=== PATIENT | male | born 1940 | race Caucasian/White ===

== ENCOUNTER → 2023-06-05 10:05 | Outpatient (REF) | payer MEDICARE, SELFPAY ==
[2023-06-05 12:19] LABS: ALT (SGPT) 22 U/L (0-50); AST (SGOT) 44 U/L (17-59); Albumin 3.2 g/dl (3.5-5.0); Alkaline Phosphatase 175 U/L (38-126); Blood Urea Nitrogen 30 mg/dl (9-20); Calcium 8.2 mg/dl (8.4-10.2); Carbon Dioxide 27 mmol/L (22-30); Chloride 104 mmol/L (98-107); Glucose 90 mg/dl (70-99); Potassium 4.5 mmol/L (3.5-5.1); Sodium 136 mmol/L (135-145); Total Protein 7.6 g/dl (6.3-8.2); eGFR 55.19
== END ==
LOC: HWLAB 10:05
PROVIDERS: ATTENDING PHYSICIAN Nurse Practitioner Family; REFERRING PHYSICIAN Nurse Practitioner
DX: S06.890A Other specified intracranial injury without loss of consciousness, initial encounter (principal); Z09 Encounter for follow-up examination after completed treatment for conditions other than malignant neoplasm; R79.89 Other specified abnormal findings of blood chemistry; I48.91 Unspecified atrial fibrillation; I50.32 Chronic diastolic (congestive) heart failure
CPT/HCPCS: 36415; 80053

== ENCOUNTER 2023-06-28 10:48 | Outpatient (RCR) | payer MEDICARE, SELFPAY | END 2023-06-28 23:59 | disposition home or self-care (01) | LOC: RPT 10:48 | PROVIDERS: ATTENDING PHYSICIAN Internal Medicine; FAMILY PHYSICIAN Nurse Practitioner Family | DX: I89.0 Lymphedema, not elsewhere classified (principal); R26.2 Difficulty in walking, not elsewhere classified; Z73.6 Limitation of activities due to disability | CPT/HCPCS: 97110; 97140; 97163; 97530; 97763 ==

== ENCOUNTER 2023-07-24 10:34 | Outpatient (RCR) | payer MEDICARE, SELFPAY | END 2023-07-24 23:59 | disposition home or self-care (01) | LOC: RPT 10:34 | PROVIDERS: ATTENDING PHYSICIAN Internal Medicine; FAMILY PHYSICIAN Nurse Practitioner Family | DX: I89.0 Lymphedema, not elsewhere classified (principal); R26.2 Difficulty in walking, not elsewhere classified; M62.81 Muscle weakness (generalized); Z73.6 Limitation of activities due to disability | CPT/HCPCS: 97110; 97112; 97140; 97530; 97763 ==

== ENCOUNTER 2023-08-28 10:34 | Outpatient (RCR) | payer MEDICARE, SELFPAY | END 2023-08-28 12:29 | disposition home or self-care (01) | LOC: RPT 10:34 | PROVIDERS: ATTENDING PHYSICIAN Internal Medicine; FAMILY PHYSICIAN Nurse Practitioner Family | DX: I89.0 Lymphedema, not elsewhere classified (principal); R26.2 Difficulty in walking, not elsewhere classified; M62.81 Muscle weakness (generalized); Z73.6 Limitation of activities due to disability | CPT/HCPCS: 97110; 97140; 97530; 97763 ==

== ENCOUNTER → 2023-09-12 08:00 | Outpatient (REF) | payer MEDICARE, SELFPAY ==
[2023-09-12 11:14] LABS: % Basophils 1.4 % (0-2); % Eosinophils 5.9 % (0-6); % Immature Granulocytes 0.6 % (0-0.5); % Lymphocytes 24.4 % (20.5-51.1); % Monocytes 14.7 % (1.7-9.3); Absolute Basophils 0.1 10^3/uL (0-0.2); Absolute Eosinophils 0.5 10^3/uL (0-0.7); Absolute Immature Granulocytes 0.1 10^3/uL (0-0.05); Absolute Lymphocytes 2.1 10^3/uL (1.2-3.4); Absolute Monocytes 1.3 10^3/uL (0.1-0.6); Absolute Neutrophils 4.5 10^3/uL (1.4-6.5); Hematocrit 44.7 % (39.0-52.0); Hemoglobin 14.8 g/dL (13.0-18.0); Mean Corp Hgb Conc. 33.1 g/dL (33.0-37.0); Mean Corpuscular Hgb 30.2 pg (27.0-31.0); Mean Corpuscular Volume 91.2 fL (80.0-94.0); Mean Platelet Volume 9.9 fL (7.4-10.4); Nucleated Red Blood Cells % 0 % (-); Platelet Count 207 10^3/uL (130-400); Red Cell Dist. Width 16.9 % (11.5-14.5); White Blood Cell Count 8.5 10^3/uL (4.8-10.8)
[2023-09-12 11:28] LABS: ALT (SGPT) 28 U/L (0-50); AST (SGOT) 47 U/L (17-59); Albumin 3.3 g/dl (3.5-5.0); Alkaline Phosphatase 171 U/L (38-126); Blood Urea Nitrogen 26 mg/dl (9-20); Carbon Dioxide 26 mmol/L (22-30); Chloride 102 mmol/L (98-107); Glucose 92 mg/dl (70-99); Phosphorus 4.4 mg/dl (2.5-4.5); Potassium 4.9 mmol/L (3.5-5.1); Sodium 136 mmol/L (135-145); Total Bilirubin 1.2 mg/dl (0.2-1.3); Total Protein 7.6 g/dl (6.3-8.2); eGFR > 60.00
[2023-09-12 11:35] LABS: Urine Protein 14 mg/dl (0-12)
[2023-09-12 11:42] LABS: Free T4 2.24 ng/dl (0.78-2.19); Prolactin 24.4 ng/ml (3.7-17.9); Vitamin D, 25-OH*** 43.5 ng/mL (30-80)
[2023-09-12 11:44] LABS: Free T3 3.36 pg/ml (2.77-5.27)
[2023-09-12 11:55] LABS: TSH 1.71 uIU/ml (0.47-4.68)
[2023-09-12 12:18] LABS: Intact PTH 69.9 pg/ml (13.6-85.8)
[2023-09-13 12:03] LABS: Thyroid Peroxidase Ab (TPO) 65.3 IU/mL (0.0-9.0)
== END ==
LOC: HWLAB 08:00
PROVIDERS: ATTENDING PHYSICIAN Internal Medicine Endocrinology, Diabetes & Metabolism; FAMILY PHYSICIAN Nurse Practitioner Family; REFERRING PHYSICIAN Internal Medicine
DX: N18.30 Chronic kidney disease, stage 3 unspecified (principal); E06.3 Autoimmune thyroiditis; E22.1 Hyperprolactinemia; D50.0 Iron deficiency anemia secondary to blood loss (chronic); N25.81 Secondary hyperparathyroidism of renal origin; I12.9 Hypertensive chronic kidney disease with stage 1 through stage 4 chronic kidney disease, or unspecified chronic kidney disease; E78.5 Hyperlipidemia, unspecified; E03.9 Hypothyroidism, unspecified
CPT/HCPCS: 36415; 80053; 82306; 82570; 83970; 84100; 84146; 84156; 84439; 84443; 84481; 85025; 86376

== ENCOUNTER → 2023-12-25 08:52 | Outpatient (REF) | payer MEDICARE, SELFPAY ==
[2023-12-25 12:26] LABS: HDL Cholesterol 33 mg/dl; LDL Cholesterol, Calculated 68 mg/dl; Total Cholesterol 124 mg/dl (50-199); Triglyceride 117 mg/dl (10-149); Very Low Density Lipoprotein 23 mg/dl (0-30)
== END ==
LOC: HWLAB 08:52
PROVIDERS: ATTENDING PHYSICIAN Nurse Practitioner Family
DX: E78.5 Hyperlipidemia, unspecified (principal); I12.9 Hypertensive chronic kidney disease with stage 1 through stage 4 chronic kidney disease, or unspecified chronic kidney disease
CPT/HCPCS: 36415; 80061

== ENCOUNTER → 2024-05-21 11:11 | Outpatient (REF) | payer MEDICARE, SELFPAY ==
[2024-05-21 15:37] LABS: % Basophils 1.2 % (0-2); % Eosinophils 3.9 % (0-6); % Immature Granulocytes 0.4 % (0-0.5); % Monocytes 13.7 % (1.7-9.3); % Neutrophils 58.8 % (42.2-75.2); Absolute Basophils 0.1 10^3/uL (0-0.2); Absolute Eosinophils 0.3 10^3/uL (0-0.7); Absolute Lymphocytes 1.5 10^3/uL (1.2-3.4); Absolute Neutrophils 4.1 10^3/uL (1.4-6.5); Hematocrit 47.2 % (39.0-52.0); Mean Corp Hgb Conc. 31.8 g/dL (33.0-37.0); Mean Corpuscular Hgb 31.6 pg (27.0-31.0); Mean Corpuscular Volume 99.4 fL (80.0-94.0); Mean Platelet Volume 10.3 fL (7.4-10.4); Nucleated Red Blood Cells % 0 % (-); Platelet Count 149 10^3/uL (130-400); Red Blood Cell Count 4.75 10^6/uL (4.70-6.10); Red Cell Dist. Width 16.3 % (11.5-14.5); White Blood Cell Count 6.9 10^3/uL (4.8-10.8)
[2024-05-21 15:53] LABS: ALT (SGPT) 17 U/L (0-50); AST (SGOT) 34 U/L (17-59); Albumin 3.7 g/dl (3.5-5.0); Alkaline Phosphatase 156 U/L (38-126); Blood Urea Nitrogen 38 mg/dl (9-20); Calcium 8.8 mg/dl (8.4-10.2); Carbon Dioxide 25 mmol/L (22-30); Chloride 98 mmol/L (98-107); Glucose 102 mg/dl (70-99); Sodium 136 mmol/L (135-145); Total Bilirubin 1.8 mg/dl (0.2-1.3); Total Protein 7.9 g/dl (6.3-8.2); eGFR 39.75
[2024-05-21 16:08] LABS: Prolactin 18.7 ng/ml (3.7-17.9)
[2024-05-21 16:22] LABS: TSH 3.05 uIU/ml (0.47-4.68)
[2024-05-24 02:24] LABS: IGF-1 Z Score Calculation -1.1; Insulin-like Growth Factor I 40 ng/mL (16-177)
== END ==
LOC: HWLAB 11:11
PROVIDERS: ATTENDING PHYSICIAN Internal Medicine Endocrinology, Diabetes & Metabolism; FAMILY PHYSICIAN Nurse Practitioner Family
DX: E78.5 Hyperlipidemia, unspecified (principal); I12.9 Hypertensive chronic kidney disease with stage 1 through stage 4 chronic kidney disease, or unspecified chronic kidney disease; N18.31 Chronic kidney disease, stage 3a; I49.3 Ventricular premature depolarization; I35.1 Nonrheumatic aortic (valve) insufficiency; E03.9 Hypothyroidism, unspecified; I10 Essential (primary) hypertension; E06.3 Autoimmune thyroiditis; E22.1 Hyperprolactinemia
CPT/HCPCS: 36415; 80053; 84146; 84305; 84439; 84443; 85025

== ENCOUNTER → 2024-06-21 09:47 | Outpatient (REF) | payer MEDICARE, SELFPAY ==
[2024-06-21 12:13] LABS: ALT (SGPT) 20 U/L (0-50); AST (SGOT) 36 U/L (17-59); Albumin 4.1 g/dl (3.5-5.0); Alkaline Phosphatase 187 U/L (38-126); Blood Urea Nitrogen 52 mg/dl (9-20); Calcium 8.8 mg/dl (8.4-10.2); Carbon Dioxide 25 mmol/L (22-30); Chloride 98 mmol/L (98-107); Glucose 100 mg/dl (70-99); Potassium 4.5 mmol/L (3.5-5.1); Sodium 138 mmol/L (135-145); Total Bilirubin 2.6 mg/dl (0.2-1.3); Total Protein 8.5 g/dl (6.3-8.2); eGFR 32.71
== END ==
LOC: HWLAB 09:47
PROVIDERS: ATTENDING PHYSICIAN Nurse Practitioner Gerontology; FAMILY PHYSICIAN Nurse Practitioner Family
DX: R06.02 Shortness of breath (principal); I50.22 Chronic systolic (congestive) heart failure
CPT/HCPCS: 36415; 71046; 80053

== ENCOUNTER → 2024-07-01 08:25 | Outpatient (REF) | payer MEDICARE, SELFPAY ==
[2024-07-01 13:01] LABS: ALT (SGPT) 18 U/L (0-50); AST (SGOT) 33 U/L (17-59); Albumin 3.2 g/dl (3.5-5.0); Alkaline Phosphatase 144 U/L (38-126); Blood Urea Nitrogen 46 mg/dl (9-20); Calcium 8.8 mg/dl (8.4-10.2); Carbon Dioxide 23 mmol/L (22-30); Chloride 98 mmol/L (98-107); Direct Bilirubin 1.1 mg/dl (0.0-0.4); Glucose 142 mg/dl (70-99); Potassium 4.9 mmol/L (3.5-5.1); Sodium 132 mmol/L (135-145); Total Bilirubin 2.4 mg/dl (0.2-1.3); Total Protein 7.2 g/dl (6.3-8.2); eGFR 39.75
[2024-07-01 18:38] LABS: Hepatitis B Core Ab, IgM Negative (Negative)
[2024-07-01 18:40] LABS: Hepatitis B Surface Antigen Negative (Negative)
[2024-07-01 18:58] LABS: Hepatitis B Core Ab, Total Negative (Negative)
[2024-07-01 19:14] LABS: Hepatitis C Antibody Negative (Negative)
== END ==
LOC: HWRCS 08:25
PROVIDERS: ATTENDING PHYSICIAN Nurse Practitioner Gerontology; FAMILY PHYSICIAN Nurse Practitioner Family
DX: R06.02 Shortness of breath (principal); I50.22 Chronic systolic (congestive) heart failure; I34.0 Nonrheumatic mitral (valve) insufficiency; I35.0 Nonrheumatic aortic (valve) stenosis; I36.1 Nonrheumatic tricuspid (valve) insufficiency; R17 Unspecified jaundice
CPT/HCPCS: 36415; 80053; 82248; 86704; 86705; 86803; 87340; 93306

== ENCOUNTER 2024-07-02 08:09 | Day surgery (SDC) | payer MEDICARE, SELFPAY | END 2024-07-02 10:40 | disposition home or self-care (01) | LOC: CATH 08:09 | PROVIDERS: ATTENDING PHYSICIAN Internal Medicine Cardiovascular Disease; FAMILY PHYSICIAN Nurse Practitioner Family; OTHER PHYSICIAN Internal Medicine | DX: I48.19 Other persistent atrial fibrillation (principal); N18.32 Chronic kidney disease, stage 3b; I50.32 Chronic diastolic (congestive) heart failure; K21.9 Gastro-esophageal reflux disease without esophagitis; Z85.828 Personal history of other malignant neoplasm of skin; Z79.01 Long term (current) use of anticoagulants; Z79.84 Long term (current) use of oral hypoglycemic drugs | CPT/HCPCS: 92960; 93005 ==

== ENCOUNTER → 2024-07-12 09:30 | Outpatient (REF) | payer MEDICARE, SELFPAY | LOC: HWRAD 09:30 | PROVIDERS: ATTENDING PHYSICIAN Nurse Practitioner Family; REFERRING PHYSICIAN Internal Medicine | DX: R17 Unspecified jaundice (principal) | CPT/HCPCS: 76700 ==

== ENCOUNTER → 2024-07-19 11:06 | Outpatient (REF) | payer MEDICARE, SELFPAY | LOC: HWRCS 11:06 | PROVIDERS: ATTENDING PHYSICIAN Internal Medicine; FAMILY PHYSICIAN Nurse Practitioner Family | DX: R06.09 Other forms of dyspnea (principal); I42.9 Cardiomyopathy, unspecified; I44.7 Left bundle-branch block, unspecified; I50.22 Chronic systolic (congestive) heart failure | CPT/HCPCS: 78452; 93017; A9500; J2785 ==

== ENCOUNTER → 2024-10-04 09:40 | Outpatient (REF) | payer MEDICARE, SELFPAY | LOC: RCS 09:40 | PROVIDERS: ATTENDING PHYSICIAN Internal Medicine; FAMILY PHYSICIAN Nurse Practitioner Family | DX: I42.9 Cardiomyopathy, unspecified (principal); I35.1 Nonrheumatic aortic (valve) insufficiency; I34.0 Nonrheumatic mitral (valve) insufficiency; I50.22 Chronic systolic (congestive) heart failure; I36.1 Nonrheumatic tricuspid (valve) insufficiency; I35.0 Nonrheumatic aortic (valve) stenosis | CPT/HCPCS: 93306 ==

== ENCOUNTER 2024-10-27 16:28 | Inpatient (IN) | payer MEDICARE, SELFPAY ==
[2024-10-27] VITALS (7 sets, daily range): BP systolic 93–103; BP diastolic 53–72; BMI 19.6; BMI 20.8; BMI 21.1
--- NOTE | 2024-10-27 12:44 | ED.GENMED ---
History of Present Illness
General
Chief Complaint: Fall
Source: patient and family
Exam Limitations: none
Time Seen by Provider: 10/27/24 11:43
History of Present Illness
History of Present Illness:
85-year-old male who lost his balance falling 3 days ago. Did not hit his head. Scraped both arms. Hit his shoulder. Some low back pain. Daughter has also noted some shortness of breath issues general fatigue and weakness. This is ongoing but
seems to be slowly progressing. Patient with a history of atrial fibrillation. Was a cardioverted relatively recently. Patient denies chest pain acute shortness of breath. Has been on oxygen recently. Breathing is at baseline
Past History
Past History
ED Past Medical History: Arrthythmia (PAF), CHF, HTN, Hypercholesterolemia, Valvular disease and Other
ED Past Surgical History: Other (Hernia repair)
Social History
Tobacco: Non-smoker
Alcohol: None
Drug: None
Personal:
Living: with family
Review of Systems
Review of Systems
All Other Systems: Not applicable
Constitutional: Denies fever
Respiratory: Denies trouble breathing
Cardiac: Denies chest pain, palpitations or syncope
Phy Exam
Physical Exam
Physical Exam:
TRAUMA EXAM:
VITAL SIGNS: Vital signs reviewed, cooperative. Elderly and frail
DISTRESS: No active disease
EYES: Pupils reactive, no orbital trauma
NOSE: No deformity or epistaxis
FACE AND SCALP: Very small scab to the forehead. No ecchymosis hematoma
NECK: Supple nontender
BACK: Back nontender, pelvis stable to compression
RESPIRATORY: No distress, breath sounds normal, no tender chest wall. Oxygen in place
CARDIAC: Mildly irregular
ABDOMEN: Soft nontender bowel sounds normal
SKIN: Large areas of ecchymosis to both forearms with no deep bony tenderness. Abrasions to both forearms. Minimal midline lumbar tenderness.
EXTREMITIES: Nontender. Left shoulder with good range of motion and nontender. Lower extremity edema
NEUROLOGICAL: Alert, oriented, no motor deficits
PSYCH: Mood affect normal
Course
Orders/Labs/Results
Orders:
Orders
10/27/24 Breakfast
Cholesterol Lowering
At Your Request: Full Participation
Cholesterol Lowering: Sodium, 2 Gram
10/27/24 11:57
IV Insert/Care/Rem.- Treatment PRN
Lumbar Spine, 2 or 3 View [CR Lumbar Spine 2 Or 3 Views] Urgent
Comment:
Reason For Exam: Low back pain after fall
10/27/24 11:58
Electrocardiogram (*1) Stat
Reason for Study: Other
Other Reason for Exam: chest pain
CT Head W/o Iv Contrast Urgent
Comment:
Reason For Exam: Fall/anticoagulated
Cardiac Monitoring- Treatment ONCE
Cardiac Monitoring- Treatment ONCE
EKG- Treatment ONCE
Tetanus/Diphth/Acelpertussis [Adacel] 0.5 ml IM .ONCE ONE
CR Chest - 2 Views Urgent
Comment:
Reason For Exam: Short of breath
10/27/24 13:30
Basic Metabolic Panel Urgent
Complete Blood Count/With Diff Urgent
NT-proBNP Urgent
Troponin I Urgent
10/27/24 14:58
0.9% Sodium Chloride 500 ml [Nss] 500 ml IV BOLUS
10/27/24 15:30
Admit/Transfer Patient As Directed
Co-Sign Provider:
Level of Care: Inpatient admission
Assign to:: IVU
Physician / Group: andree
Diagnosis: elevated trop NSTEMI
Reason for Hospitalization: elevated TROP NSTEMI
Expected length of stay greater than two midnights?: Yes
ELOS- Estimated Length of Stay in days: 3
I certify the patient meets the requirements for IP care: Yes
PRN Pain Medication Management As Directed
May give lesser potent ordered pain med per pt: Yes
preference::
Protocol:: Medication orders for pain may be administered in a
manner that supports deferring to patient preference
when the pt is:
- Requesting an ordered lesser potent pain medication.
Least to most potent pain medications are defined
as: acetaminophen < NSAID < tramadol < opioids
(morphine, oxycodone, hydromorphone).
- Requesting a lesser dose of the same medication IF
ORDERED.
- Requesting a less intrusive route of administration
if both routes are prescribed by the provider (PO <
IV).
10/27/24 15:32
Code Status As Directed
Resuscitation Status: Do not resuscitate
Reached after discussion with pt or family/Healthcare POA: Yes
10/27/24 15:33
DNR Bracelet Application ONCE
10/27/24 16:58
Troponin I Urgent
10/27/24 17:56
0.9% Sodium Chloride 1000 ml [Nss] 1,000 ml IV 70 mls/hr
Acetaminophen [Tylenol] 650 mg PO Q4HPRN PRN
Bisacodyl [Dulcolax] 10 mg RECTAL [id number] PRN
Docusate W/Senna [Senokot-S] 1 tablet PO BIDPRN PRN
Polyethylene Glycol Powder [Miralax] 17 grams PO DAILYPRN PRN
10/27/24 17:56
Activity As Directed
Activity Level: As Tolerated
Intake/ Output As Directed
Frequency: Per unit guidelines
Vital Signs As Directed
Frequency: Per unit guidelines
Weight As Directed
Frequency: Daily
O2 Therapy [RESP] Routine
Nasal Cannula Liter Flow: 3 LPM
Titrate/Wean O2 to maintain O2 sat greater than (%): 95
10/27/24 20:00
Apixaban [Eliquis] 2.5 mg PO BID
10/28/24 04:14
Basic Metabolic Panel IN AM
Cardiovascular Evaluation IN AM
10/28/24 06:00
Levothyroxine [Synthroid] 150 mcg PO DAILY@0600
Occupational Therapy Consult [Ot Eval And Treat] IN AM
Physical Therapy Consult [Pt Eval And Treat] IN AM
Activity Level: As Tolerated
10/28/24 08:00
Atorvastatin [Lipitor] 10 mg PO DAILY
Ferrous Sulfate [Feosol] 325 mg PO DAILY
Lansoprazole [Prevacid] 15 mg PO DAILY
10/28/24 18:00
Tamsulosin [Flomax] 0.4 mg PO QPM
Abnormal Lab Results
10/27/24
13:30
RBC 4.41 L 10^6/uL
(4.70-6.10)
MCV 98.6 H fL
(80.0-94.0)
MCH 33.6 H pg
(27.0-31.0)
RDW 15.9 H %
(11.5-14.5)
Abs Immat Gran (auto) 0.1 H 10^3/uL
(0-0.05)
Absolute Lymphs (auto) 0.9 L 10^3/uL
(1.2-3.4)
Absolute Monos (auto) 1.0 H 10^3/uL
(0.1-0.6)
Immature Gran % 0.7 H %
(0-0.5)
Neutrophils % 75.5 H %
(42.2-75.2)
Lymphocytes % 10.7 L %
(20.5-51.1)
Monocytes % 11.7 H %
(1.7-9.3)
Potassium 5.4 H mmol/L
(3.5-5.1)
Carbon Dioxide 21 L mmol/L
(22-30)
BUN 62 H mg/dl
(9-20)
Creatinine 2.0 H mg/dL
(0.7-1.3)
Troponin I 0.054 H* ng/ml
10/27/24 13:30
10/27/24 13:30
Vital Signs
Initial and Last Documented VS:
Initial Vital Signs
Temp Pulse Resp BP Pulse Ox
97.8 F 96 20 93/53 90
10/27/24 11:26 10/27/24 11:26 10/27/24 11:26 10/27/24 11:26 10/27/24 11:26
Last Documented Vital Signs
Temp Pulse Resp BP Pulse Ox
97.3 F 84 18 101/68 3
10/28/24 07:10 10/28/24 07:10 10/28/24 07:10 10/28/24 04:06 10/28/24 07:10
MDM/Problems Addressed
Differential Diagnosis Includes:
Patient here with 2 major issues #1 is evaluation of a fall. He is not describing syncope. He recalls going down. He had no head trauma but based on mechanism and on Eliquis we will CT his head. He has no cervical findings. He has no chest wall
findings or abdominal findings. He has no deep bony tenderness. He has multiple abrasions. Tetanus shot will be given. Is mild lumbar tenderness. Will x-ray of the lumbar area. Second issue is general weakness fatigue some slow increased gait
issues. This has been a gradual ongoing issue. He has a complicated cardiac history. We will check labs EKG. He is in atrial flutter again which may be contributing to some of his symptoms. Clinically not in heart failure.
*Pulse Oximetry
SaO2: 90
Nasal Cannula flow liters per minute: 3
Patient hypoxic: no
*EKG
Interpreted by ED Provider?: Yes
Interpretation: abnormal
Comparison EKG: changes noted
Heart Rate: 74
Rate: normal
Rhythm: atrial flutter and PVC's
[place]: left axis deviation
Interval: normal interval
QRS Pattern: normal QRS
Ischemia: non-specific ST changes
*Critical Care Note
Total Time (30-74mins, 75-104mins- exclusive of procedures): Not Applicable
Data Reviewed
Review of Other/Old Records Reveals: Labs, Records and Testing
Update Note
Update Note:
Patient remained medically stable and nontoxic. From a trauma standpoint no acute issues. Describing some general ongoing weakness that has slightly progressed over time. He is not describing acute ischemic issues. He does have a minimally
elevated troponin that likely is just nonspecific and may be related to his atrial flutter. Atrial flutter is rate controlled. Mild hyperkalemia. Mild hypopension. General weakness. Warrants inpatient management.
ED Attending Note
-
Portions of this chart may have been created with voice recognition software.� Occasional wrong word or��sound alike� substitutions may have occurred due to the inherent limitations of voice recognition software.
Discharge Plan
Departure
Patient Disposition: Admit
Date of Disposition: 10/27/24
Time of Disposition: 14:49
Presentation/result/management discussed w/ accepting MD/DO: Hospitalist
Discharge Problem:
Weakness/frequent falls, Rate controlled atrial flutter, Hyperkalemia, Renal insufficiency/dehydration, Bilateral arm abrasions
Interventions
Interventions:
*Risk Screen - Suicide Last Done: 10/27/24 18:08
*General Assessment Last Done: 10/27/24 15:14
*Neglect/Abuse Screening Last Done: 10/27/24 11:26
*ED- Fall Risk Assessment Last Done: 10/27/24 15:14
*ED COVID-19 Vaccine History Last Done: 10/27/24 15:14
*Nursing Disposition Last Done: 10/27/24 18:04
ED-Musculoskeletal Assessment Last Done: 10/27/24 16:25
ED- Neurological Assessment Last Done: 10/27/24 16:18
ED-Skin Assessment Last Done: 10/27/24 16:23
Discharge Date and Time
Discharge Date/Time: 10/27/24 18:05
[2024-10-27 13:38] LABS: Hematocrit 43.5 % (39.0-52.0); Hemoglobin 14.8 g/dL (13.0-18.0); Mean Corp Hgb Conc. 34.0 g/dL (33.0-37.0); Mean Corpuscular Volume 98.6 fL (80.0-94.0); Nucleated Red Blood Cells % 0 % (-); Platelet Count 139 10^3/uL (130-400); Red Cell Dist. Width 15.9 % (11.5-14.5)
[2024-10-27 14:11] LABS: Blood Urea Nitrogen 62 mg/dl (9-20); Calcium 8.8 mg/dl (8.4-10.2); Carbon Dioxide 21 mmol/L (22-30); Chloride 103 mmol/L (98-107); Estimated Creatinine Clearance 23 ml/min; Glucose 98 mg/dl (70-99); Potassium 5.4 mmol/L (3.5-5.1); Sodium 135 mmol/L (135-145); eGFR 32.71
[2024-10-27 14:25] LABS: Troponin I 0.054 ng/ml
--- NOTE | 2024-10-27 14:58 | HPS.HSE ---
Family Physician
-
Family Physician: NOT KNOW UNKNOWN - PT DOES
Chief Complaint
-
fall
History of Present Illness
85-year-old male with past medical history for PAF, CHF, hypertension, hyperlipidemia, valvular disease who lost his balance falling 3 days ago. Did not hit his head. Scraped both arms. Hit his shoulder. Some low back pain. since then he
progressively got weaker, and fatigue.as per daughter he was cardioverted few months ago. he was doing fine and was not needing his oxygen but recently started using oxygen again. he was evaluated by pulmonology. Patient denies any headache,
dizziness or syncope. Patient denied any fever, chills, cough, congestion. Patient denies any chest pain or short of breath. Patient denies any abdominal pain, nausea, vomiting or diarrhea. Patient denies dysuria hematuria . Denies weight gain
. As per daughter worsening lower extremities edema
Upon arrival he was hypotensive. Patient received normal saline 500 cc, tetanus shot. Admitting for further management
Medical History
Past Medical History
Past Medical History: Reports Other
Additional Past Medical History:
Dyslipidemia
Aortic valve insufficiency
Left bundle julian block
Systolic heart failure
Chronic blood loss anemia
Lymphedema
First-degree AV block
Hypertension
Stage IIIb CKD
Cardiomyopathy
PVCs
Hypothyroidism
Paroxysmal A-fib
Past Surgical History: Reports Other
Additional Past Surgical History:
Bilateral cataract extraction
Hernia surgery
Social History
Tobacco: Non-smoker
Alcohol: None
Drug: None
Personal: Single
Living: Alone
Family History
Family History: Not pertinent
Allergies / Home Medications
Allergies reflects when Allergies were last updated in [facility].
Home Medications with original date entered in [facility]
Allergy/Medication List:
Allergies
Allergy/AdvReac Type Severity Reaction Status Date / Time
No Known Allergies Allergy Verified 10/27/24 11:26
Home Medications
atorvastatin 10 mg tablet 10 mg PO DAILY High cholesterol 07/25/22
levothyroxine 150 mcg tablet 150 mcg PO DAILY Thyroid 07/25/22
silodosin 8 mg capsule 8 mg PO QPM Urinary issue 07/25/22
carvedilol 6.25 mg tablet 6.25 mg PO BID Blood Pressure 10/02/22
lansoprazole 15 mg delayed release,disintegrating tablet 15 mg PO DAILY GERD 10/02/22
apixaban 5 mg tablet (Eliquis) 5 mg PO BID Blood Clot Prevention/Tx 04/25/23
cholecalciferol (vitamin D3) 50 mcg (2,000 unit) tablet (Vitamin D3) 100 mcg PO DAILY Supplement ##0 04/25/23
ferrous sulfate 325 mg (65 mg iron) tablet,delayed release 325 mg PO DAILY Supplement 04/25/23
dapagliflozin propanediol 10 mg tablet (Farxiga) 10 mg PO DAILY Heart disease/condition 30 days #30 tabs 05/01/23
spironolactone 25 mg tablet 25 mg PO DAILY Fluid retention/Swelling 30 days #30 tabs 05/01/23
furosemide 40 mg tablet 40 mg PO DAILY Fluid retention/Swelling #30 tabs 05/02/23
acetaminophen 325 mg tablet (Tylenol) 650 mg PO Q6HPRN PRN MILD PAIN 10/27/24
Review of Systems
-
Constitutional: Reports Fatigue
EENT: Reports No Symptoms
Respiratory: Reports No Symptoms
Cardiac: Reports No Symptoms
Abdomen/GI: Reports No Symptoms
: Reports No Symptoms
Musculoskeletal: Reports No Symptoms
Skin: Reports No Symptoms
Neurological: Reports Weakness
Endocrine: Reports No Symptoms
Hematologic/Lymphatic: Reports No Symptoms
Psych: Reports No Symptoms
Physical Exam
Vital Signs
Vital Signs
Temp Pulse Resp BP Pulse Ox
97.8 F 75 25 93/53 92
10/27/24 11:26 10/27/24 13:45 10/27/24 13:45 10/27/24 11:26 10/27/24 13:45
Physical Exam
General: Well Developed, Well Nourished and No Apparent Distress
HEENT: NormoCephalic, Moist mucous membranes and Atraumatic
Respiratory: Clear
Cardiac: S1/S2 and Regular Rhythm; No Murmur or Rub
GI: Soft, Non Tender, Non Distended and Normal Bowel Sounds; No Organomegaly
Rectal: Deferred by Provider
Musculoskeletal: No Clubbing, No Cyanosis and No Edema
Skin: Other (Scab to forehead,Large areas of ecchymosis to both forearms with no deep bony tenderness. Abrasions to both forearms. )
Neuro: Nonfocal/grossly intact
Laboratory Results
-
10/27/24 13:30
10/27/24 13:30
Laboratory Results
Lactic Acid Cancelled 10/27/24 18:00
Troponin I 0.054 ng/ml H* 10/27/24 13:30
Data Reviewed
-
Diagnostic Radiology: Report Reviewed by me
CT Scan: Report Reviewed by me
Lab Data: Labs Reviewed by me
Impression/Plan
-
# Generalized weakness/fall likely mechanical
#mild acute compression deformity of L1
- PT/OT consulted
- Head CT with No acute intracranial abnormality. Specifically, no acute intracranial hemorrhage or extra-axial collection. Atrophy and chronic microvascular white matter ischemic change. No skull fracture. Partial visualization of the paranasal
sinuses, with the presence of inflammatory changes at different stages, as described, raising possibility of acute sphenoid sinusitis in the proper clinical setting.
- Chest x-ray with Stable chronic findings, as described. No acute cardiopulmonary process.
- Lumbar spine x-ray with mild acute compression deformity of L1
-Tylenol prn for back pain
# Hyperkalemia/acute kidney injury on CKD stage IIIb concern for dehydration
- Creatinine 2.0, potassium 5.4
- Patient was in normal saline in the ER
- BMP in a.m.
-fluids continued
#hypotension likely from hypovolemic
-fluids continued
-hold coreg
# Elevated Trop likely NSTEMI
- Troponin 0.054
- Continue to trend troponin
- EKG with a flutter with variable AV block with PVCs or aberrantly conducted complexes. Left anterior fascicle block. Nonspecific T wave abnormality
#Chronic diastolic heart failure exacerbation
# Chronic hypoxic respiratory insufficiency
#nonischemic cardiomyopathy
#moderate AR
-Patient uses 3 L of oxygen baseline, continue supplemental oxygen
- Strict PHANI, daily weight
- Hold Farxiga
-hold Lasix and spironolactone
# Hyperlipidemia
- Atorvastatin continued
#paroxysmal atrial fibrillation.
-Continue Eliquis
- Coreg held due to hypotension
# Iron deficiency anemia
- Ferrous sulfate continued
# GERD
- Lansoprazole continue
#BPH
-silodosin continued
#hypothyroidism
- Levothyroxine
DVT ppx -Eliquis
DNR
[2024-10-27] MEDS: NSS 500 IV (16:00)
--- NOTE | 2024-10-27 17:27 | W.PN.UPDATE ---
Update Note
Progress Note Update
This is an addendum to H&P written by Robyn Huang on 10/27/2024. �Patient seen and examined independently with [employer].
84-year-old male past medical history of HFpEF on 3 L baseline, nonischemic cardiomyopathy, moderate aortic regurgitation, paroxysmal atrial fibrillation on Eliquis, contraction alkalosis, CKD 3B, chronic anemia, BPH, hypothyroidism, presenting for
fatigue, weakness, worsening lower extremity edema and shortness of breath. �Ongoing weight loss. �Cardioverted in June but found to be in atrial fibrillation since then. �No changes to medication doses recently.
He had a fall 3 days ago landing on his butt with some left wrist pain and lower back pain.
Labs show creatinine of 2 from baseline of 1.7, potassium 5.4. �Troponin 0.054.
CT head shows no acute intracranial abnormality. �Chest x-ray unremarkable. �Lumbar spine x-ray shows acute L1 compression deformity.
Presentation consistent with hypovolemia secondary to decreased p.o. intake and Lasix/spironolactone/dapagliflozin/Coreg. �Slight ZULMA. �Nonischemic myocardial injury from hypovolemia. �Trend troponins. �Cardiac BNP pending. �Gentle IV fluids. �Hold
Lasix/spironolactone/dapagliflozin/Coreg.
Tylenol for L1 compression fracture.
[2024-10-27 17:34] LABS: Troponin I 0.040 ng/ml
[2024-10-27] MEDS: ADACEL 0.5 ML IM (17:34)
--- NOTE | 2024-10-27 18:28 | PTCARENOTE ---
Rec'd pt from ED. Pt ambulatory from stretcher to bed w/ assist x1 and RW. Pt is AOX3. Tele- aflutter. HR 80-90s. Pt sating 98% on 3L O2 NC. Pt baseline is 3L O2 NC at home. Oriented pt to room. Reviewed plan of care w/ pt and verbalizes
understanding. Currently OOB in chair eating dinner; call colby w/in reach.
[2024-10-27] MEDS: NSS 1000 IV (18:29)
[2024-10-27] MEDS: TYLENOL 650 MG PO (18:56)
[2024-10-27] MEDS: ELIQUIS 2.5 MG PO (19:28)
--- NOTE | 2024-10-27 23:33 | PTCARENOTE ---
Pt. sitting OOB in chair all evening, VSS, A-fib with frequent PVC's on the monitor. No complaints pain discomfort at this time, states Tylenol given on previous shift effective for lower back pain. IVF's infusing as per order, pt. using urinal
with assist x 1 & RW to stand. Pt. completely oriented and very pleasant. Whishes to stay in chair at this time.
[2024-10-28] VITALS (18 sets, daily range): BP systolic 87–115; BP diastolic 56–76; PULSE 86–100; O2SAT 95; BMI 21.1
[2024-10-28] MEDS: FLOMAX 0.4 MG PO ×2 (00:27→17:16)
--- NOTE | 2024-10-28 05:01 | PTCARENOTE ---
Pt. urinating small amounts of jesse urine frequently this shift, 100-200 ml at a time. Having some difficulty, no burning or pain. Hospitalist JANAY Bowen notified, also that 1800 Flomax dose last night was missed (pt. new admit, med not started
until 10/28 on JUN). One time dose ordered and given at 0027 with some improvement in flow. Pt. bladder scanned post void this morning with results of 183 ml.
[2024-10-28 05:02] LABS: Blood Urea Nitrogen 57 mg/dl (9-20); Calcium 8.0 mg/dl (8.4-10.2); Carbon Dioxide 20 mmol/L (22-30); Chloride 107 mmol/L (98-107); Estimated Creatinine Clearance 27 ml/min; Glucose 83 mg/dl (70-99); HDL Cholesterol 28 mg/dl; LDL Cholesterol, Calculated 48 mg/dl; Potassium 4.4 mmol/L (3.5-5.1); Sodium 135 mmol/L (135-145); Very Low Density Lipoprotein 19 mg/dl (0-30); eGFR 37.12
[2024-10-28] MEDS: SYNTHROID 150 MCG PO (05:38)
[2024-10-28] MEDS: ELIQUIS 2.5 MG PO ×2 (07:45→20:10)
[2024-10-28] MEDS: FEOSOL 325 MG PO (07:45)
[2024-10-28] MEDS: PREVACID 15 MG PO (07:45)
[2024-10-28] MEDS: LIPITOR 10 MG PO (07:45)
[2024-10-28] MEDS: NSS 1000 IV (07:46)
[2024-10-28] MEDS: TYLENOL 650 MG PO ×2 (07:55→23:02)
--- NOTE | 2024-10-28 09:54 | CON.CAR ---
Addendum entered and electronically signed by Gabe Welsh MD 10/28/24 10:39:
84 yo male with PMH of paroxysmal A fib, on eliquis, CKD3b, chronic HFPEF is admitted with weakness, falls, ZULMA. He denies chest pain. Edema is stable. Exam with irregular rhythm, II/ systolic murmur at RUSB, 1+ RLE, trace LLE edema. Cr 1.8. Tele
and EKG show rate controlled atrial flutter.
Atrial flutter, typical, new. He was cardioverted in June from A fib, and felt better in sinus. Discussed with EP. Will start tikosyn 125mcg q12. High risk med with close monitoring of tele and EKG. Continue eliquis 2.5mg bid.
With low BP, will change coreg to Toprol XL.
Chronic HFPEF. BP low, ZULMA. Hold lasix, farxiga, aldactone. K was elevated on admission, so will stop aldactone going forward.
Recent echo and stress reviewed below.
Original Note:
Consultation
Consultation Request
Date/Time Consultation Requested: 10/28/2024 0900
Date/Time Consultation Performed: 10/28/2024 0930
Requesting Provider: DR. Walsh
Performing Provider: Dr. Welsh
Reason for Consultation: AF, chronic chronic systolic HF mid range
Medical History
-
Chief Complaint: weakness, SOB
History of Present Illness:
84 y/o pt with PAF(CHADSVASC 4) last DCCV 07/02/24, LBBB, NICM , chronic HFmrEF now 54 %, mils , mild/mod MR, mod AR, mild-mod TR, PVC's, mildly dilated ascending aorta, CKD3b, pre-DM, HTN, lymphedema and h/o of recurrent GI bleeds who presents
to ER after increased weakness and SOB. He also had a trip and fall last week. He notes he had had poor appetite and po intake . He denies CP, palpitations. He feels more LIMON with activity and is on chronic O2. On admit noted to be back in atrial
flutter.
Past Medical History
Past Medical History: Other (HTN, hyperlipidemia, LBBB, NICM EF 54%, mild , mild-mod MR, mild AR, mild-mod TR, PVC's. BPH, CKD3, CKDb3,GI bleed, anemia,lymphedema, hypythyroidism,, PAF,)
Past Surgical History: Other (Hernia surgery, bilateral cataract surgery,)
Social History
Tobacco: Non-Smoker
Alcohol: None
Living: Alone
Family History
Family History: Reviewed & Not Pertinent
Allergies / Home Medications
Allergy/AdvReac Type Severity Reaction Status Date / Time
No Known Allergies Allergy Verified 10/27/24 11:26
�Medication �Instructions �Recorded �Confirmed �Type
atorvastatin 10 mg tablet 10 mg PO DAILY High cholesterol 07/25/22 10/27/24 History
levothyroxine 150 mcg tablet 150 mcg PO DAILY Thyroid 07/25/22 10/27/24 History
silodosin 8 mg capsule 8 mg PO QPM Urinary issue 07/25/22 10/27/24 History
carvedilol 6.25 mg tablet 6.25 mg PO BID Blood Pressure 10/02/22 10/27/24 History
lansoprazole 15 mg delayed 15 mg PO DAILY GERD 10/02/22 10/27/24 History
release,disintegrating tablet
apixaban 5 mg tablet (Eliquis) 2.5 mg PO BID Blood Clot 04/25/23 10/27/24 History
Prevention/Tx
cholecalciferol (vitamin D3) 50 100 mcg PO DAILY Supplement ##0 04/25/23 10/27/24 History
mcg (2,000 unit) tablet (Vitamin
D3)
ferrous sulfate 325 mg (65 mg 325 mg PO DAILY Supplement 04/25/23 10/27/24 History
iron) tablet,delayed release
dapagliflozin propanediol 10 mg 10 mg PO DAILY Heart 05/01/23 10/27/24 Rx
tablet (Farxiga) disease/condition 30 days #30 tabs
spironolactone 25 mg tablet 25 mg PO DAILY Fluid 05/01/23 10/27/24 Rx
retention/Swelling 30 days #30 tabs
furosemide 40 mg tablet 40 mg PO DAILY Fluid 05/02/23 10/27/24 Rx
retention/Swelling #30 tabs
acetaminophen 325 mg tablet 650 mg PO Q6HPRN PRN MILD PAIN 10/27/24 10/27/24 History
(Tylenol)
Review of Systems
-
History Source: Patient
Constitutional: Weight Loss and Fatigue
EENT: No Symptoms
Respiratory: Trouble Breathing
Cardiac: No Symptoms
Abdomen/GI: No Symptoms
: No Symptoms
Musculoskeletal: Other (Generalized weakness)
Skin: No Symptoms
Neurological: No Symptoms
Physical Exam
Vital Signs
Temp Pulse Resp BP Pulse Ox
97.3 F 92 18 96/60 94
10/28/24 07:10 10/28/24 08:00 10/28/24 07:10 10/28/24 07:55 10/28/24 08:14
Lab Results
10/27/24 13:30
10/28/24 04:14
Troponin I Cancelled 10/27/24 22:30
Klq-Q-Daiweyhktao Pept 05992 pg/ml 10/27/24 13:30
Physical Exam
General: Well Developed and No Apparent Distress
HEENT: Normocephalic and Moist Mucous Membranes
Respiratory: Crackles (Right base, left clear)
Cardiac: S1/S2, Irregular Rhythm and Peripheral Edema (Mild bilateral lower extremity edema right greater than left)
Breast: Deferred by me
GI: Soft, Non Tender and Normal Bowel Sounds
Rectal: Deferred by Provider
Musculoskeletal: Edema (Mild bilateral lower extremity edema right greater than left)
Skin: Warm and Dry
Neuro: AO x 3
Impression / Plan
-
PAF, atrial flutter:
- Patient with recurrent atrial arrhythmias. Atrial flutter is typical flutter. Initial plan will be to initiate Tikosyn.
- Tikosyn initiation will require intense inpatient monitoring. EKG and telemetry will be monitored as well as renal function.
- If patient does not convert to normal sinus rhythm with Tikosyn then we will proceed with electrical cardioversion.
- Patient confirms he has not missed any doses of Eliquis in the last month. He is on the lower dose Eliquis secondary to age and renal function.
- Will also plan for EP consultation for atrial flutter ablation as an outpatient.
- Past EKG from 07/02/2024 prior EKG from 07/02/2024 in normal sinus rhythm had a QTc of 450 ms.
- Prior amiodarone with elevated LFTs which normalized off medication.
Chronic HFpEF:
- Patient with recent weakness. In chart review it does appear that he has had weight loss as well.
- He was given IV fluids in the emergency room which were continued.
- Creatinine is improving. Hold on further IV fluids. BNP 23,000 this admit in setting CKD/ZULMA.
- Continue to hold diuretics at this time.
-Continue to reassess renal function and timing of restarting diuretics. Patient may only need as needed Lasix moving forward will reassess.
-Echo 10/04/24 EF 54, mild mod MR, AR, TR
-Lexiscan stress test 07/18/2024 negative for ischemia
- Will change Coreg to low-dose metoprolol to allow for improved blood pressures.
ZULMA/CKD3b:
-con't monitor renal function with holding diuresis
LBBB:
Chronic stable
Chronic lymphedema:
- Previous lymphedema therapy, compression as tolerated
Data Reviewed
-
EKG: Tracing Personally Visualized and interpreted (Atrial flutter 74 bpm, LAFB, PVC)
Radiology: Report Reviewed by me (Chest x-ray 10/27/2024 no acute process)
MRI: Other (Lexiscan stress test 07/19/2024 EKG negative for ischemia no notable ischemia on imaging EF 54%)
Medical Tests (Nuc Med, Echo etc): Report Reviewed by me (Echocardiogram 10/04/2024 EF 54%, severe biatrial enlargement, mild to moderate mitral, aortic and tricuspid regurgitation, normal PASP)
Labs: Labs Reviewed by me and Discussed with Physician
Old Records: Reviewed (Reviewed outpatient charts which include last outpatient cardiology office visit from July 11, 2024 summarized as above)
[2024-10-28] MEDS: TIKOSYN 125 MCG PO ×2 (10:59→22:48)
--- NOTE | 2024-10-28 12:03 | W.CARD.TIKOS ---
Initiate Tikosyn
-
I verify that the patient has not taken any verapamil (Isoptin/Calan), ketoconazole (Nizoral), cimetidine (Tagamet), trimethoprim (Trimpex), trimethoprim/sulfamethoxazole (Bactrim), megesterol (Megace), prochlorperazine (Compazine),
hydrochlorothiazide (HCTZ), dolutegravir (Tivicay) or any Class I or Class III anti-arrhythmic within the last three days
AND
I verify that the patient has not taken amiodarone within the last THREE months, or that the patient's amiodarone plasma concentration is <0.3 mcg/mL.
Creatinine 1.8 mg/dL (0.7-1.3) H 10/28/24 04:14
Estimated Creat Clear 27 ml/min 10/28/24 04:14
Does patient have a Ventricular Conduction Abnormality: Yes
I have assessed the baseline QTc interval (using QT for heart rate less than 60 bpm) and deemed the patient is appropriate for Dofetilide therapy. I understand that Tikosyn is contraindicated if the QTc is >440msec (500msec in patients with
ventricular conduction abnormalities).
Baseline QTc (in msec): 479
QTc interval is greater than 440msec without conduction abnormality OR greater than 500msec with a conduction abnormality, but acceptable to proceed per Cardiology attending.
Reason for Administration with Prolonged QTc: Bundle Branch Block (IVCD, LBBB history)
Ordering Physician: Gabe Welsh
--- NOTE | 2024-10-28 13:36 | PTCARENOTE ---
Dose #1 of PO tikosyn 125mcg dose administered. Post EKG obtained per protocol. QTc 484. Tele remains aflutter. Plan of care reviewed w/ pt and verbalizes understanding. Currently OOB in chair; call earnestine w/in reach.
[2024-10-28 14:06] LABS: Urine Character Clear (Clear)
[2024-10-28 14:13] LABS: Urine Squamous Cell 0-2 /LPF (Few); Urine White Cell 0-2 /HPF (0-5)
--- NOTE | 2024-10-28 14:50 | W.PN.HOSP.TC ---
Today's Communication/Plan
-
Holding Diuretics, monitoring BMP
Tikosyn loading
Nutrition consult
Assessment / Plan
Assessment / Plan
Physical Exam
General: Well Developed and No Apparent Distress
HEENT: Normocephalic and Moist Mucous Membranes
Respiratory: Crackles (Right base, left clear)
Cardiac: S1/S2, Irregular Rhythm
Breast: Deferred by me
GI: Soft, Non Tender and Normal Bowel Sounds
Rectal: Deferred by Provider
Musculoskeletal: Edema (Mild bilateral lower extremity edema right greater than left) - chronic
Skin: Warm and Dry
Neuro: AO x 3
# Generalized weakness/fall likely mechanical
#mild acute compression deformity of L1
-Possibly related to PAF/AFlutter +/- hypovolemia/dehydration + ZULMA
- Treat as below
- PT/OT consulted
-Holding diuretics
- Head CT with no obvious acute abnormality
- Chest x-ray with Stable chronic findings, as described. No acute cardiopulmonary process.
- Lumbar spine x-ray with mild acute compression deformity of L1
-Tylenol prn for back pain
-UA neg
�Nutrition consult
#ZULMA on CKD3b
#Hyperkalemia
-Holding diuretics
-Monitor for re-initiation
-F/u BMP
#Chronic Hypotension
-orthostatic negative
-holding lasix
- Change Coreg to low-dose metoprolol
-monitor
#PAF, atrial flutter:
- Patient with recurrent atrial arrhythmias.
-Tikosyn initiation
-Eliquis He is on the lower dose Eliquis secondary to age and renal function.
- EP consultation for atrial flutter ablation as an outpatient.
- Prior amiodarone with elevated LFTs which normalized off medication.
#Chronic HFpEF:
-hold diuretics - not in overload
-Gentle fluid if needed
-Creatinine is improving.
-Elev BNP - exacerbated by ZULMA
-Echo 10/04/24 EF 54, mild mod MR, AR, TR - no need for repeat at this time
-Lexiscan stress test 07/18/2024 negative for ischemia
- Will change Coreg to low-dose metoprolol
#Chronic lymphedema:
- Previous lymphedema therapy, compression as tolerated
# Elevated Trop
-trops flat
unlikely NSTEMI
-no chest pain
-Recent Stress test negative for ischemia
-Cards following
# Chronic hypoxic respiratory insufficiency -Patient uses 3 L of oxygen baseline, continue supplemental oxygen
#moderate AR
# Hyperlipidemia - Atorvastatin continued
# Iron deficiency anemia- Ferrous sulfate continued
# GERD- Lansoprazole continue
#BPH - meds continued
#hypothyroidism - Levothyroxine
DVT ppx -Eliquis
Total time spent on today's encounter was 50 minutes which included time spent in counseling the patient/family regarding diagnosis and treatment plan as listed above, goals of care, and symptom management. Case was discussed with nursing staff,
specialists, and care coordinators/case management. All labs and imaging personally reviewed by me. Remainder the time spent in detailed review of previous records, lab data, imaging, and other medical provider documentation.
Anticipated Discharge: > 48 hours
Subjective/Interval History
-
Date of Service: October 28, 2024
No acute events, sitting in chair comfortably
Objective Data
-
Labs:
Laboratory Results
10/28/24
04:14
Sodium 135
Potassium 4.4
Chloride 107
Carbon Dioxide 20 L
BUN 57 H
Creatinine 1.8 H
Glucose 83
Calcium 8.0 L
Vital Signs:
Vital Signs
Temp Pulse Resp BP Pulse Ox
97.2 F 79 16 115/76 99
10/28/24 11:13 10/28/24 14:00 10/28/24 11:13 10/28/24 12:46 10/28/24 11:13
I&O
10/27/24 10/28/24 10/29/24
06:59 06:59 06:59
Intake Total 820 / 820 410 / 410
Output Total 500 / 500
Balance 320 / 320 410 / 410
Review of Systems
-
History Source: Patient
All other systems: Not reviewed unless documented
Data Reviewed
-
Total Time Spent with Patient (in minutes): 43
Labs: Labs Reviewed by me
--- NOTE | 2024-10-28 17:15 | CM ---
spoke to pt in room, he is prev indep, lives alone in a 2 story home. he has a son and a daughter close by and very supportive. he uses a rollator when needed and has home o2. plan is for tikosyn loading and dc to home rodriguez medically stable. cm
following for any dc planning needs as they arise.
[2024-10-28] MEDS: TOPROL XL 12.5 MG PO (21:40)
--- NOTE | 2024-10-28 23:35 | PTCARENOTE ---
Rec'd pt at change of shift. Pt AAO*3, VSS, and Afib on TELE monitor. pt reported lower back pain, Tylenol given as ordered. Pt maintained on high fall risk and bed alarm active. Pt resting with call colby in reach and plan of care ongoing. See
MAR and flowchart for full pt care and assessment. 2nd dose of Tikosyn rec'd.
[2024-10-29] VITALS (8 sets, daily range): BP systolic 100–125; BP diastolic 55–70; BMI 20.9
[2024-10-29 04:16] LABS: Hematocrit 39.7 % (39.0-52.0); Hemoglobin 13.5 g/dL (13.0-18.0); Mean Corp Hgb Conc. 34.0 g/dL (33.0-37.0); Mean Corpuscular Volume 99.3 fL (80.0-94.0); Platelet Count 134 10^3/uL (130-400); Red Cell Dist. Width 16.0 % (11.5-14.5)
[2024-10-29 04:40] LABS: ALT (SGPT) 15 U/L (0-50); AST (SGOT) 27 U/L (17-59); Albumin 3.0 g/dl (3.5-5.0); Alkaline Phosphatase 152 U/L (38-126); Blood Urea Nitrogen 49 mg/dl (9-20); Calcium 8.1 mg/dl (8.4-10.2); Carbon Dioxide 20 mmol/L (22-30); Chloride 110 mmol/L (98-107); Estimated Creatinine Clearance 35 ml/min; Glucose 88 mg/dl (70-99); Potassium 4.3 mmol/L (3.5-5.1); Sodium 137 mmol/L (135-145); Total Protein 6.5 g/dl (6.3-8.2); eGFR 50.18
[2024-10-29] MEDS: SYNTHROID 150 MCG PO (06:23)
[2024-10-29] MEDS: TYLENOL 650 MG PO (06:24)
[2024-10-29] MEDS: LIPITOR 10 MG PO (07:54)
[2024-10-29] MEDS: PROTONIX 20 MG PO (07:54)
[2024-10-29] MEDS: ELIQUIS 2.5 MG PO ×2 (07:54→08:47)
[2024-10-29] MEDS: FEOSOL 325 MG PO (07:54)
--- NOTE | 2024-10-29 08:37 | W.PN.CD ---
Today's Communication / Plan
-
tikosyn 125mcg q12
-If patient does not convert to normal sinus rhythm with Tikosyn then we will proceed with electrical cardioversion tomorrow
stop aldactone due to hyperkalemia on admission
resume farxiga
lasix prn
BP low on coreg: now on Toprol XL 12.5mg qHS
Impression / Plan
-
PAF, typical atrial flutter:
- Patient with recurrent atrial arrhythmias. Atrial flutter is typical flutter. Discussed with EP. Plan will be to initiate Tikosyn.
- Tikosyn initiation (high risk med) will require intense inpatient monitoring. EKG and telemetry will be monitored as well as renal function. He has underlying IVCD. Baseline QTc in sinus 479 msec.
-tikosyn 125mcg q12
- If patient does not convert to normal sinus rhythm with Tikosyn then we will proceed with electrical cardioversion tomorrow
- Patient confirms he has not missed any doses of Eliquis in the last month.
- Prior amiodarone toxicity with elevated LFTs which normalized off medication.
-BP low on coreg: now on Toprol XL 12.5mg qHS
Anticoagulation
-Cr 1.4 today, so eliquis increased to 5mg bid
-if Cr remains variable, will likely change to xarelto 15mg daily
Chronic HFpEF:
-Echo 10/04/24 EF 54, mild mod MR, AR, TR
-Lexiscan stress test 07/18/2024 negative for ischemia
-Patient with recent weakness. In chart review it does appear that he has had weight loss as well.
- stop aldactone due to hyperkalemia on admission
-resume farxiga
-lasix prn
ZULMA/CKD3b: improving
-con't monitor renal function with holding lasix/adactone
iLBBB:
Chronic stable
Chronic lymphedema:
- Previous lymphedema therapy, compression as tolerated
Physical Exam
Vital Signs/Labs
Vital Signs
Temp Pulse Resp BP Pulse Ox
97.4 F 87 18 101/70 98
10/29/24 07:32 10/29/24 08:00 10/29/24 07:32 10/29/24 07:32 10/29/24 08:02
10/28/24 10/29/24 10/30/24
06:59 06:59 06:59
Actual Weight 61 kg 60.6 kg
10/29/24 03:47
10/29/24 03:47
Triglycerides 95 mg/dl (10-149) 10/28/24 04:14
LDL Cholesterol, Calc 48 mg/dl 10/28/24 04:14
VLDL Cholesterol, Calc 19 mg/dl (0-30) 10/28/24 04:14
HDL Cholesterol 28 mg/dl 10/28/24 04:14
10/27/24
13:30
Imd-N-Ukptyjlmgsu Pept 48760
LAB Results
10/27/24 10/27/24 10/27/24
13:30 16:58 22:30
Troponin I 0.054 H* 0.040 H* D Cancelled
Physical Exam
Constitutional: No acute distress and Comfortable
EENT: Moist mucous membranes
Cardiovascular: Rhythm/rate is irregular, Pedal edema present, JVD present, Systolic murmur present and Diastolic murmur present
Respiratory: Respiratory effort normal and Lungs clear to auscul.
Neuro/Psych: Alert and Oriented
Data Reviewed
-
Date of Service: October 29, 2024
EKG: Other (Tele: A fl 80s, PVC's)
Labs: Labs Reviewed by me
[2024-10-29] MEDS: FARXIGA 10 MG PO (08:47)
[2024-10-29] MEDS: TIKOSYN 125 MCG PO ×2 (10:54→23:05)
--- NOTE | 2024-10-29 15:10 | W.PN.HOSP.TC ---
Today's Communication/Plan
-
tikosyn
may need cardioversion tomorrow
resume farxiga
Toprol
may need ct imaging of the abd/pelvis outpt with contrast if renal function stablized
Assessment / Plan
Assessment / Plan
Physical Exam
General: Well Developed and No Apparent Distress
HEENT: Normocephalic and Moist Mucous Membranes
Respiratory: Crackles (Right base, left clear)
Cardiac: S1/S2, Irregular Rhythm
Breast: Deferred by me
GI: Soft, Non Tender and Normal Bowel Sounds
Rectal: Deferred by Provider
Musculoskeletal: Edema (Mild bilateral lower extremity edema right greater than left) - chronic
Skin: Warm and Dry
Neuro: AO x 3
# Generalized weakness/fall likely mechanical
#mild acute compression deformity of L1
-Possibly related to PAF/AFlutter +/- hypovolemia/dehydration + ZULMA
- Treat as below
- PT/OT consulted
-Holding diuretics
- Head CT with no obvious acute abnormality
- Chest x-ray with Stable chronic findings, as described. No acute cardiopulmonary process.
- Lumbar spine x-ray with mild acute compression deformity of L1
-Tylenol prn for back pain
-UA neg
�Nutrition consult
#ZULMA on CKD3b
#Hyperkalemia
-improving
-Holding diuretics
-Monitor for re-initiation
-F/u BMP
#Chronic Hypotension
-orthostatic negative
-holding lasix
- Change Coreg to low-dose metoprolol
-monitor
#PAF, atrial flutter:
- Patient with recurrent atrial arrhythmias.
-Tikosyn initiation - if not reverting to sinus - plan for cardioversion tomorrow
-He is on the lower dose Eliquis secondary to age and renal function.
- EP consultation for atrial flutter ablation as an outpatient.
- Prior amiodarone with elevated LFTs which normalized off medication.
- Toprol
#Chronic HFpEF:
-hold diuretics - not in overload
-resume farxiga
-No more Aldactone with ZULMA and Elevated K on admission
-Gentle fluid if needed
-Creatinine is improving.
-Elev BNP - exacerbated by ZULMA
-Echo 10/04/24 EF 54, mild mod MR, AR, TR - no need for repeat at this time
-Lexiscan stress test 07/18/2024 negative for ischemia
- Will change Coreg to low-dose metoprolol
#Chronic lymphedema:
- Previous lymphedema therapy, compression as tolerated
# Elevated Trop
-trops flat
unlikely NSTEMI
-no chest pain
-Recent Stress test negative for ischemia
-Cards following
#Transaminitis - worked up in the past - Neg murphys sign; no biliary ductal dilation that was sig; Consider CT enhanced CT abd to evaluate pancrease and Ascites - may need to be done outpt due to recent ZULMA
# Chronic hypoxic respiratory insufficiency -Patient uses 3 L of oxygen baseline, continue supplemental oxygen
#moderate AR
# Hyperlipidemia - Atorvastatin continued
# Iron deficiency anemia- Ferrous sulfate continued
# GERD- Lansoprazole continue
#BPH - meds continued
#hypothyroidism - Levothyroxine
DVT ppx -Eliquis
Total time spent on today's encounter was 52 minutes which included time spent in counseling the patient/family regarding diagnosis and treatment plan as listed above, goals of care, and symptom management. Case was discussed with nursing staff,
specialists, and care coordinators/case management. All labs and imaging personally reviewed by me. Remainder the time spent in detailed review of previous records, lab data, imaging, and other medical provider documentation.
Anticipated Discharge: 24 - 48 hours
Subjective/Interval History
-
Date of Service: October 29, 2024
tikosyn loading
Objective Data
-
Labs:
Laboratory Results
10/29/24
03:47
WBC 7.2
Hgb 13.5
Hct 39.7
Plt Count 134
Sodium 137
Potassium 4.3
Chloride 110 H
Carbon Dioxide 20 L
BUN 49 H
Creatinine 1.4 H
Glucose 88
Calcium 8.1 L
Total Bilirubin 1.6 H
AST 27
ALT 15
Alkaline Phosphatase 152 H
Vital Signs:
Vital Signs
Temp Pulse Resp BP Pulse Ox
97.6 F 85 16 100/63 98
10/29/24 15:08 10/29/24 11:18 10/29/24 15:08 10/29/24 11:18 10/29/24 15:08
I&O
10/28/24 10/29/24 10/30/24
06:59 06:59 06:59
Intake Total 820 / 820 1090 / 1090 400 / 400
Output Total 500 / 500 100 / 100
Balance 320 / 320 990 / 990 400 / 400
Review of Systems
-
History Source: Patient
All other systems: Not reviewed unless documented
Physical Exam
-
General: Well Developed and No Apparent Distress
HEENT: Normocephalic, Atraumatic and Moist Mucous Membranes
Respiratory: Clear to Auscultation
Cardiac: Regular Rhythm and S1/S2; Negative Murmur, Rub or Gallop
GI: Soft, Nontender, Nondistended and Normal Bowel Sounds; Negative Organomegaly
Rectal: Deferred by Provider
Musculoskeletal: No Clubbing, No Cyanosis, No Edema, Edema, Right Lower Extrem and Edema, Left Lower Extrem
Skin: Negative Rash
Neuro: Awake, Alert, Oriented, AO x 3 and Nonfocal/Grossly Intact
Psych: Calm
Data Reviewed
-
Total Time Spent with Patient (in minutes): 43
Labs: Labs Reviewed by me
--- NOTE | 2024-10-29 15:45 | PN.CDI ---
CDI
- -
CDI:
Physician Documentation Request
Admit Date: 10/27/24 16:28
Dear Doctor,
Please review the following and provide your response in the progress notes.
Clinical Indicators:
Pt admitted with Generalized weakness/fall likely mechanical, mild acute compression deformity of L1, and ZULMA.
10/27 H&P : ' -Chronic hypoxic respiratory insufficiency...Patient uses 3 L of oxygen baseline, continue supplemental oxygen'
Clarify which of the following accurately represents the patient's respiratory status:
Chronic respiratory failure
Hypoxia only
Other
Use of terms such as suspected, likely, concern for, or probable (associated with a specific diagnosis that is being evaluated, monitored, or treated as if it exists) are acceptable and can be coded in the inpatient setting, when documented at the
time of discharge.
Thank you,
Jenelle Vines RN, BSN
CDI Specialist
Stamps Text
Please use your independent medical judgment in providing your response.
--- NOTE | 2024-10-29 15:59 | CM ---
priced xarelto $47/month and Dofetilide $ 40/month with pts [facility] perscript plan.
[2024-10-29] MEDS: FLOMAX 0.4 MG PO (17:08)
[2024-10-29] MEDS: TOPROL XL 12.5 MG PO (21:23)
[2024-10-29] MEDS: ELIQUIS 5 MG PO (21:23)
[2024-10-30] VITALS (16 sets, daily range): BP systolic 88–117; BP diastolic 45–89; BMI 21.3
--- NOTE | 2024-10-30 01:06 | PTCARENOTE ---
Assumed care on pt at 1900, aaox3, fall precautions in place, rings call light appropriately. Afib on the monitor. HR 70-100's, denies cp, SOB or dizziness. Tikosyn dose #4 given and post EKG obtained. Call colby within reach, POC ongoing.
[2024-10-30 04:24] LABS: Hematocrit 39.6 % (39.0-52.0); Hemoglobin 13.3 g/dL (13.0-18.0); Mean Corp Hgb Conc. 33.6 g/dL (33.0-37.0); Mean Corpuscular Volume 100.0 fL (80.0-94.0); Platelet Count 136 10^3/uL (130-400); Red Cell Dist. Width 16.3 % (11.5-14.5)
[2024-10-30 04:43] LABS: ALT (SGPT) 15 U/L (0-50); AST (SGOT) 28 U/L (17-59); Albumin 2.8 g/dl (3.5-5.0); Alkaline Phosphatase 158 U/L (38-126); Blood Urea Nitrogen 38 mg/dl (9-20); Calcium 7.9 mg/dl (8.4-10.2); Carbon Dioxide 19 mmol/L (22-30); Chloride 109 mmol/L (98-107); Estimated Creatinine Clearance 41 ml/min; Glucose 88 mg/dl (70-99); Potassium 4.2 mmol/L (3.5-5.1); Sodium 135 mmol/L (135-145); Total Protein 6.3 g/dl (6.3-8.2); eGFR > 60.00
[2024-10-30] MEDS: SYNTHROID 150 MCG PO (06:10)
--- NOTE | 2024-10-30 08:13 | W.PN.CD ---
Today's Communication / Plan
-
- DCCV today
Impression / Plan
-
PAF, typical atrial flutter:
- Patient with recurrent atrial arrhythmias. Atrial flutter is typical flutter. Discussed with EP. Plan will be to initiate Tikosyn.
- Tikosyn initiation (high risk med) will require intense inpatient monitoring. EKG and telemetry will be monitored as well as renal function. He has underlying IVCD. Baseline QTc in sinus 479 msec.
-tikosyn 125mcg q12
- Still in atrial flutter. Less likely to convert with Tikosyn. Plan for electrical cardioversion today
- Patient confirms he has not missed any doses of Eliquis in the last month.
- Prior amiodarone toxicity with elevated LFTs which normalized off medication.
-BP low on coreg: now on Toprol XL 12.5mg qHS
Anticoagulation
-Cr has recoered and 1.2 today, so eliquis increased to 5mg bid
Chronic HFpEF:
-Echo 10/04/24 EF 54, mild mod MR, AR, TR
-Lexiscan stress test 07/18/2024 negative for ischemia
-Patient with recent weakness. In chart review it does appear that he has had weight loss as well.
- stop aldactone due to hyperkalemia on admission
-resume farxiga
-lasix prn
ZULMA/CKD3b: improving
-con't monitor renal function with holding lasix/adactone
iLBBB:
Chronic stable
Chronic lymphedema:
- Previous lymphedema therapy, compression as tolerated
Physical Exam
Vital Signs/Labs
Vital Signs
Temp Pulse Resp BP Pulse Ox
97.4 F 87 18 95/58 97
10/30/24 08:01 10/30/24 04:00 10/30/24 03:18 10/30/24 03:18 10/30/24 08:01
10/29/24 10/30/24 10/31/24
06:59 06:59 06:59
Actual Weight 60.6 kg 61.5 kg
10/30/24 03:16
10/30/24 03:16
Triglycerides 95 mg/dl (10-149) 10/28/24 04:14
LDL Cholesterol, Calc 48 mg/dl 10/28/24 04:14
VLDL Cholesterol, Calc 19 mg/dl (0-30) 10/28/24 04:14
HDL Cholesterol 28 mg/dl 10/28/24 04:14
10/27/24
13:30
Haf-M-Btiojucnqjf Pept [id number]
LAB Results
10/27/24 10/27/24 10/27/24
13:30 16:58 22:30
Troponin I 0.054 H* 0.040 H* D Cancelled
Physical Exam
Constitutional: No acute distress and Comfortable
EENT: Anicteric and Moist mucous membranes
Cardiovascular: Rhythm & rate is regular, Pedal edema is absent, JVD pressure is normal and Systolic murmur present
Respiratory: Respiratory effort normal, Lungs clear to auscul. and Wheeze Absent
GI: Soft, Non tender and Normal bowel sounds
Neuro/Psych: Alert, Oriented and AO x 3
Data Reviewed
-
Date of Service: October 30, 2024
Medical Decision Making: Reviewed Test Results, Test Interpretation and Review of Case with other Provider
EKG: Tracing Personally Visualized and interpreted
Echo: Report Reviewed by me
Labs: Labs Reviewed by me
Old Records: Reviewed
[2024-10-30] MEDS: LIPITOR 10 MG PO (09:24)
[2024-10-30] MEDS: ELIQUIS 5 MG PO ×2 (09:24→19:53)
[2024-10-30] MEDS: PROTONIX 20 MG PO (09:24)
[2024-10-30] MEDS: FARXIGA 10 MG PO (09:24)
[2024-10-30] MEDS: FEOSOL 325 MG PO (09:24)
[2024-10-30] MEDS: TIKOSYN 125 MCG PO ×2 (10:18→22:36)
[2024-10-30] MEDS: TYLENOL 650 MG PO (10:35)
--- NOTE | 2024-10-30 11:14 | PTCARENOTE ---
pt left for CV in chemistry laboratory technician. Report given to chemistry laboratory technician RN.
Pt is AOx3, complains of back pain, given PRN medication as ordered. Assist x1 OOB with walker. Aflutter on tele monitor, VSS on 3L O2.
--- NOTE | 2024-10-30 12:20 | W.PN.UPDATE ---
Update Note
Progress Note Update
Electrical cardioversion. Successful conversion of atrial flutter to sinus rhythm with 200 J. In the recovery. Patient would transiently have acceleration in his rates with question of recurrent atrial flutter although sometimes it is
questionable whether he was having sinus tach or atrial tach currently in sinus rhythm.
--- NOTE | 2024-10-30 13:10 | PTCARENOTE ---
pt returned from director labor standards. no complaints of pain or discomfort. SB on tele monitor. Call colby within reach.
--- NOTE | 2024-10-30 13:16 | CM ---
CM following for DC planning needs.
Attempted to meet w/ patient but patient was not available-@ a procedure.
Reviewed initial assessment. Pt. resides in a 2 story home alone. Functionally, patient is indep. w/ ADLs, mobility; + drives. He does have O2.
Anticipated DC plan is for home with [facility].
Pt. will not agree to rehab, if recommended.
Has supportive daughter, who lives locally + son.
CM to follow.
--- NOTE | 2024-10-30 13:43 | W.PN.HOSP.TC ---
Addendum entered and electronically signed by Robi Banks MD 10/30/24 14:40:
Chronic respiratory failure
Original Note:
Today's Communication/Plan
-
DCCV today
monitor additional day
Toprol
Monitor BMP off lasix
RUQ Sono with no acute abnormal process, can be followed up outpt
Assessment / Plan
Assessment / Plan
Physical Exam
General: Well Developed and No Apparent Distress
HEENT: Normocephalic and Moist Mucous Membranes
Respiratory: Crackles (Right base, left clear)
Cardiac: S1/S2, Irregular Rhythm
Breast: Deferred by me
GI: Soft, Non Tender and Normal Bowel Sounds
Rectal: Deferred by Provider
Musculoskeletal: Edema (Mild bilateral lower extremity edema right greater than left) - chronic
Skin: Warm and Dry
Neuro: AO x 3
# Generalized weakness/fall likely mechanical
#mild acute compression deformity of L1
-Possibly related to PAF/AFlutter +/- hypovolemia/dehydration + ZULMA
- Treat as below
- PT/OT consulted
-Holding diuretics
- Head CT with no obvious acute abnormality
- Chest x-ray with Stable chronic findings, as described. No acute cardiopulmonary process.
- Lumbar spine x-ray with mild acute compression deformity of L1
-Tylenol prn for back pain
-UA neg
�Nutrition consult
#ZULMA on CKD3b
#Hyperkalemia
-improving
-Holding diuretics
-Monitor for re-initiation
-F/u BMP
#Chronic Hypotension
-orthostatic negative
-holding lasix
- Change Coreg to low-dose metoprolol
-monitor
#PAF, atrial flutter:
- Patient with recurrent atrial arrhythmias.
-Tikosyn initiation - continues to be in Aflutter
-plan for cardioversion today: successfully converted to Sinus
-He is on the lower dose Eliquis secondary to age and renal function.
- EP consultation for atrial flutter ablation as an outpatient.
- Prior amiodarone with elevated LFTs which normalized off medication.
- Toprol
#Chronic HFpEF:
-hold diuretics - not in overload
-resume farxiga
-No more Aldactone with ZULMA and Elevated K on admission
-Gentle fluid if needed
-Creatinine is improving.
-Elev BNP - exacerbated by ZULMA
-Echo 10/04/24 EF 54, mild mod MR, AR, TR - no need for repeat at this time
-Lexiscan stress test 07/18/2024 negative for ischemia
- Will change Coreg to low-dose metoprolol
#Chronic lymphedema:
- Previous lymphedema therapy, compression as tolerated
# Elevated Trop
-trops flat
unlikely NSTEMI
-no chest pain
-Recent Stress test negative for ischemia
-Cards following
#Transaminitis - - Neg murphys sign; no biliary ductal dilation that was sig; Repeat US with 12mm gallstone. Can Consider CT enhanced CT abd to evaluate pancreas outpatient. Ascites resolved : may need to be done outpt due to recent ZULMA
# Chronic hypoxic respiratory insufficiency -Patient uses 3 L of oxygen baseline, continue supplemental oxygen; sometimes is non compliant and can exacerbate abnormal rhythm.
#moderate AR
# Hyperlipidemia - Atorvastatin continued
# Iron deficiency anemia- Ferrous sulfate continued
# GERD- Lansoprazole continue
#BPH - meds continued
#hypothyroidism - Levothyroxine
DVT ppx -Eliquis
Total time spent on today's encounter was 53 minutes which included time spent in counseling the patient/family regarding diagnosis and treatment plan as listed above, goals of care, and symptom management. Case was discussed with nursing staff,
specialists, and care coordinators/case management. All labs and imaging personally reviewed by me. Remainder the time spent in detailed review of previous records, lab data, imaging, and other medical provider documentation.
Anticipated Discharge: Within 24 hours
Subjective/Interval History
-
Date of Service: October 30, 2024
Feels better today
DCCV today
Objective Data
-
Labs:
Laboratory Results
10/30/24
03:16
WBC 7.4
Hgb 13.3
Hct 39.6
Plt Count 136
Sodium 135
Potassium 4.2
Chloride 109 H
Carbon Dioxide 19 L
BUN 38 H
Creatinine 1.2
Glucose 88
Calcium 7.9 L
Total Bilirubin 1.8 H
AST 28
ALT 15
Alkaline Phosphatase 158 H
Vital Signs:
Vital Signs
Temp Pulse Resp BP Pulse Ox
97.4 F 93 18 100/61 97
10/30/24 11:26 10/30/24 11:09 10/30/24 11:26 10/30/24 11:09 10/30/24 11:26
I&O
10/29/24 10/30/24 10/31/24
06:59 06:59 06:59
Intake Total 1090 / 1090 940 / 940
Output Total 100 / 100
Balance 990 / 990 940 / 940
Review of Systems
-
History Source: Patient
All other systems: Not reviewed unless documented
Data Reviewed
-
Total Time Spent with Patient (in minutes): 43
Ultrasound: Report Reviewed by me
Labs: Labs Reviewed by me
[2024-10-30] MEDS: LIDOCAINE 4% PATCH 1 PATCH TOPICAL (14:18)
[2024-10-30] MEDS: FLOMAX 0.4 MG PO (17:33)
[2024-10-30] MEDS: REMOVE LIDOCAINE PATCH 1 PATCH REMOVE (21:21)
[2024-10-30] MEDS: TOPROL XL 12.5 MG PO (21:21)
--- NOTE | 2024-10-31 00:33 | PTCARENOTE ---
Addendum entered by Kimmie Menezes RN 10/31/24 01:58:
rhythm questionably A-fib - EKG done later showing ST - see other notes
Original Note:
Pt. remains in sinus rhythm (vicenta at times to the 50's) with frequent PVC's. Did have run of Afib at 0028 but broke spontaneously while sleeping. Pt. denies any pain discomfort, complains of being tired tonight. Sleeping when checked on.
[2024-10-31 01:35] VITALS: BP 124/63
--- NOTE | 2024-10-31 01:42 | PTCARENOTE ---
Pt. flip-flopping between SB in the 50's with PVC's and ?SR ? rate 90's-110 with inverted P waves on the monitor (difficult to see rhythm). Pt. sleeping. Asymptomatic when woken, VSS. EKG completed x 2 showing SR with fusion complexes, PAC's, &
abberant conduction - 2nd showing SR with PVC's. Both shown to [facility], with no new orders at this time.
[2024-10-31 03:03] VITALS: BMI 21.4
[2024-10-31 03:27] LABS: Hematocrit 41.2 % (39.0-52.0); Hemoglobin 13.6 g/dL (13.0-18.0); Mean Corp Hgb Conc. 33.0 g/dL (33.0-37.0); Mean Corpuscular Volume 101.5 fL (80.0-94.0); Platelet Count 129 10^3/uL (130-400); Red Cell Dist. Width 16.5 % (11.5-14.5)
[2024-10-31 03:51] LABS: ALT (SGPT) 15 U/L (0-50); AST (SGOT) 26 U/L (17-59); Albumin 3.0 g/dl (3.5-5.0); Alkaline Phosphatase 151 U/L (38-126); Blood Urea Nitrogen 41 mg/dl (9-20); Calcium 8.5 mg/dl (8.4-10.2); Carbon Dioxide 21 mmol/L (22-30); Chloride 109 mmol/L (98-107); Estimated Creatinine Clearance 38 ml/min; Glucose 103 mg/dl (70-99); Magnesium 2.3 mg/dl (1.6-2.3); Potassium 4.6 mmol/L (3.5-5.1); Sodium 135 mmol/L (135-145); Total Protein 6.6 g/dl (6.3-8.2); eGFR 54.85
[2024-10-31] MEDS: SYNTHROID 150 MCG PO (03:54)
[2024-10-31 07:26] VITALS: BP 104/52
[2024-10-31] MEDS: LIDOCAINE 4% PATCH 1 PATCH TOPICAL (08:38)
[2024-10-31] MEDS: LIPITOR 10 MG PO (08:39)
[2024-10-31] MEDS: FARXIGA 10 MG PO (08:39)
[2024-10-31] MEDS: PROTONIX 20 MG PO (08:39)
[2024-10-31] MEDS: ELIQUIS 5 MG PO (08:39)
[2024-10-31] MEDS: FEOSOL 325 MG PO (08:39)
--- NOTE | 2024-10-31 08:47 | W.PN.CD ---
Today's Communication / Plan
-
- Stable for discharge from cardiac stand point
Impression / Plan
-
PAF, typical atrial flutter:
- Patient with recurrent atrial arrhythmias. Atrial flutter is typical flutter.
- DCCV on 10/30/24
- Tikosyn initiation (high risk med) will require intense inpatient monitoring. EKG and telemetry will be monitored as well as renal function. He has underlying IVCD. Baseline QTc in sinus 479 msec.
-tikosyn 125mcg q12
- Patient confirms he has not missed any doses of Eliquis
- Prior amiodarone toxicity with elevated LFTs which normalized off medication.
-BP low on coreg: now on Toprol XL 12.5mg qHS
Anticoagulation
-Cr has recovered and 1.2 today, so Eliquis increased to 5mg bid
Chronic HFpEF:
-Echo 10/04/24 EF 54, mild mod MR, AR, TR
-Lexiscan stress test 07/18/2024 negative for ischemia
-Patient with recent weakness. In chart review it does appear that he has had weight loss as well.
- stop aldactone due to hyperkalemia on admission
-resume farxiga
-lasix prn
ZULMA/CKD3b: improving
-con't monitor renal function with holding lasix/adactone
iLBBB:
Chronic stable
Chronic lymphedema:
- Previous lymphedema therapy, compression as tolerated
Physical Exam
Vital Signs/Labs
Vital Signs
Temp Pulse Resp BP Pulse Ox
97 F 60 20 124/63 96
10/31/24 08:10 10/31/24 02:00 10/31/24 08:10 10/31/24 01:35 10/31/24 08:10
10/30/24 10/31/24 11/01/24
06:59 06:59 06:59
Actual Weight 61.5 kg 62 kg
10/31/24 02:46
10/31/24 02:46
Magnesium 2.3 mg/dl (1.6-2.3) 10/31/24 02:46
Triglycerides 95 mg/dl (10-149) 10/28/24 04:14
LDL Cholesterol, Calc 48 mg/dl 10/28/24 04:14
VLDL Cholesterol, Calc 19 mg/dl (0-30) 10/28/24 04:14
HDL Cholesterol 28 mg/dl 10/28/24 04:14
10/27/24
13:30
Vja-O-Lxnxlfpqpob Pept [id number]
Physical Exam
Constitutional: No acute distress and Comfortable
EENT: Anicteric and Moist mucous membranes
Cardiovascular: Rhythm & rate is regular (PACs noted. ), Pedal edema is absent and JVD pressure is normal
Respiratory: Respiratory effort normal, Wheeze Absent and Rhonchi Absent
GI: Soft, Distention absent, Non tender and Normal bowel sounds
Neuro/Psych: Alert, Oriented and AO x 3
Data Reviewed
-
Date of Service: October 31, 2024
Medical Decision Making: Reviewed Test Results, Test Interpretation and Review of Case with other Provider
EKG: Tracing Personally Visualized and interpreted
Echo: Report Reviewed by me
Medical Tests (PFT, Pathology etc): Discussed with Physician
Labs: Labs Reviewed by me
Old Records: Reviewed
[2024-10-31 09:15] VITALS: BP 108/59
[2024-10-31 09:32] VITALS: BP 108/59; PULSE 57; O2SAT 96
--- NOTE | 2024-10-31 11:01 | PTCARENOTE ---
Received from application packaging specialist RN. Pt is Ox3 and very pleasant, bed alarm in place for pt safety. NSR/ SB on tele with frequent PVC's and PAC's. Rhythm has frequent ectopy- sent to cardiology for further eval. +1 LE edema. Breath sounds clear with some
minor R base crackles. Pt is on chronic 3L NC, 95% O2 sat, wears at all times. Some mild difficulty urinating. Good appetite, soft ABD. Ax1 RW, currently sitting OOB in the chair. Worked with PT, walking the halls without difficulty. Pt makes needs
known. Call colby within reach.
[2024-10-31 11:31] VITALS: BP 99/52
[2024-10-31] MEDS: TIKOSYN 125 MCG PO (11:32)
--- NOTE | 2024-10-31 12:18 | CM ---
CM following for DC planning needs.
Met w/ patient at bedside. He is hopeful for DC today.
We reviewed DC plan for home w/ [facility]. Pt. will also benefit from rolling walker. TT to MD to write script for this. PT to provide prior to DC.
Has transport home from [facility].
Plan- home w/ [facility]
--- NOTE | 2024-10-31 12:24 | W.PN.HOSP.TC ---
Addendum entered and electronically signed by Robi Banks MD 11/01/24 16:27:
[id number]
Original Note:
Today's Communication/Plan
-
Lasix PRN
Tikosyn
Resume Farxiga
Stop Aldactone
Stop Coreg, started Toprol
F/u LFTs outpt
Lidocaine patch
Assessment / Plan
Assessment / Plan
Physical Exam
General: Well Developed and No Apparent Distress
HEENT: Normocephalic and Moist Mucous Membranes
Respiratory: Crackles (Right base, left clear)
Cardiac: S1/S2, Irregular Rhythm
Breast: Deferred by me
GI: Soft, Non Tender and Normal Bowel Sounds
Rectal: Deferred by Provider
Musculoskeletal: Edema (Mild bilateral lower extremity edema right greater than left) - chronic
Skin: Warm and Dry
Neuro: AO x 3
# Generalized weakness/fall likely mechanical - improved
#mild acute compression deformity of L1 - pain improved; can use lidocaine patch
-Possibly related to PAF/AFlutter +/- hypovolemia/dehydration + ZULMA
- Treat as below
- PT/OT consulted
-Holding diuretics, now PRN
- Head CT with no obvious acute abnormality
- Chest x-ray with Stable chronic findings, as described. No acute cardiopulmonary process.
- Lumbar spine x-ray with mild acute compression deformity of L1
-Tylenol prn for back pain
-UA neg
�Nutrition consult
#ZULMA on CKD3b
#Hyperkalemia
-improving
-Holding diuretics, now can go PRN
-Monitor for re-initiation
-F/u BMP outpatient
#Chronic Hypotension
-orthostatic negative
-holding lasix, can go PRN
- Change Coreg to low-dose metoprolol
-monitor
#PAF, atrial flutter:
- Patient with recurrent atrial arrhythmias.
-Tikosyn initiation - and continued
-cardioversion 10/30 - successfully converted to Sinus - with frequent PACs, does have risk to go back into aflutter
-He is on the lower dose Eliquis secondary to age and renal function.
- EP consultation for atrial flutter ablation as an outpatient.
- Prior amiodarone with elevated LFTs which normalized off medication.
- Toprol
#Chronic HFpEF:
-hold diuretics - not in overload
-resume farxiga
-No more Aldactone with ZULMA and Elevated K on admission
-Gentle fluid if needed
-Creatinine is improving.
-Elev BNP - exacerbated by ZULMA
-Echo 10/04/24 EF 54, mild mod MR, AR, TR - no need for repeat at this time
-Lexiscan stress test 07/18/2024 negative for ischemia
- Will change Coreg to low-dose metoprolol
#Chronic lymphedema:
- Previous lymphedema therapy, compression as tolerated
# Elevated Trop
-trops flat
unlikely NSTEMI
-no chest pain
-Recent Stress test negative for ischemia
-Cards following
#Transaminitis - - Neg murphys sign; no biliary ductal dilation that was sig; Repeat US with 12mm gallstone. Can Consider CT enhanced CT abd to evaluate pancreas outpatient. Ascites resolved : may need to be done outpt due to recent ZULMA
# Chronic hypoxic respiratory insufficiency -Patient uses 3 L of oxygen baseline, continue supplemental oxygen; sometimes is non compliant and can exacerbate abnormal rhythm.
#moderate AR
# Hyperlipidemia - Atorvastatin continued
# Iron deficiency anemia- Ferrous sulfate continued
# GERD- Lansoprazole continue
#BPH - meds continued
#hypothyroidism - Levothyroxine
DVT ppx -Eliquis
More than 30 minutes spent in discharge including
Final examination of the patient
Summarizing hospital stay
Instructions for continuing care to all relevant caregivers
Preparation of discharge records, prescriptions, and referral forms
Total time spent (in minutes): 36
Anticipated Discharge: Today
Subjective/Interval History
-
Date of Service: October 31, 2024
Sinus with frequent PACs
Objective Data
-
Labs:
Laboratory Results
10/31/24
02:46
WBC 7.7
Hgb 13.6
Hct 41.2
Plt Count 129 L
Sodium 135
Potassium 4.6
Chloride 109 H
Carbon Dioxide 21 L
BUN 41 H
Creatinine 1.3
Glucose 103 H
Calcium 8.5
Total Bilirubin 2.1 H
AST 26
ALT 15
Alkaline Phosphatase 151 H
Vital Signs:
Vital Signs
Temp Pulse Resp BP Pulse Ox
97 F 60 20 124/63 95
10/31/24 08:10 10/31/24 02:00 10/31/24 08:10 10/31/24 01:35 10/31/24 11:34
I&O
10/30/24 10/31/24 11/01/24
06:59 06:59 06:59
Intake Total 940 / 940 240 / 240
Output Total 600 / 600
Balance 940 / 940 -360 / -360
Review of Systems
-
History Source: Patient
All other systems: Not reviewed unless documented
Physical Exam
-
General: Well Developed and No Apparent Distress
HEENT: Normocephalic, Atraumatic and Moist Mucous Membranes
Respiratory: Clear to Auscultation
Cardiac: Regular Rhythm and S1/S2; Negative Murmur, Rub or Gallop
GI: Soft, Nontender, Nondistended and Normal Bowel Sounds; Negative Organomegaly
Rectal: Deferred by Provider
Musculoskeletal: No Clubbing, No Cyanosis, No Edema, Edema, Right Lower Extrem and Edema, Left Lower Extrem
Skin: Negative Rash
Neuro: Awake, Alert, Oriented, AO x 3 and Nonfocal/Grossly Intact
Psych: Calm
Data Reviewed
-
Total Time Spent with Patient (in minutes): 43
Ultrasound: Report Reviewed by me
Labs: Labs Reviewed by me
--- NOTE | 2024-10-31 12:32 | W.DS.TRANS ---
DC Summary - [facility]
-
Discharge Instructions:
Sleep Apnea Risk Intermediate
Discharge Diagnosis/Procedures PAF, typical atrial flutter
ZULMA/CKD3b
Diet Low Cholesterol,Low Fat,2 Gram Sodium,Restrict
fluids to 48 oz
Activity As tolerated
Blood Work cbc and cmp in 1 week with pcp
Others Tests Follow up elevated Bili and ALP outpatient with
PCP
Specialty Instructions Weigh Daily
Instructions:
Stand-Alone Forms:
Changes to Home Medications: Yes
Discharge Medications:
DC Medications w/original date entered in [employer]
atorvastatin 10 mg tablet 10 mg PO DAILY High cholesterol 07/25/22
levothyroxine 150 mcg tablet 150 mcg PO DAILY Thyroid 07/25/22
silodosin 8 mg capsule 8 mg PO QPM Urinary issue 07/25/22
lansoprazole 15 mg delayed release,disintegrating tablet 15 mg PO DAILY GERD 10/02/22
cholecalciferol (vitamin D3) 50 mcg (2,000 unit) tablet (Vitamin D3) 100 mcg PO DAILY Supplement ##0 04/25/23
ferrous sulfate 325 mg (65 mg iron) tablet,delayed release 325 mg PO DAILY Supplement 04/25/23
dapagliflozin propanediol 10 mg tablet (Farxiga) 10 mg PO DAILY Heart disease/condition 30 days #30 tabs 05/01/23
acetaminophen 325 mg tablet (Tylenol) 650 mg PO Q6HPRN PRN MILD PAIN 10/27/24
apixaban 5 mg tablet (Eliquis) 5 mg PO BID 30 days #60 tabs 10/31/24
dofetilide 125 mcg capsule 125 mcg PO Q12H 30 days #60 caps 10/31/24
furosemide 40 mg tablet 40 mg PO DAILYPRN PRN for weight gain, 3lb in 24 hours or 5 lb in 1 week #30 tabs 10/31/24
lidocaine 4 % topical patch 1 patch topical DAILY #30 ea 10/31/24
metoprolol succinate 25 mg tablet,extended release 24 hr 12.5 mg (1/2 x 25 mg) PO HS 30 days #15 tabs 10/31/24
Home Medication Changes
apixaban 5 mg tablet (Eliquis) 5 mg PO BID 30 days #60 tabs 10/31/24
dofetilide 125 mcg capsule 125 mcg PO Q12H 30 days #60 caps 10/31/24
furosemide 40 mg tablet 40 mg PO DAILYPRN PRN for weight gain, 3lb in 24 hours or 5 lb in 1 week #30 tabs 10/31/24
lidocaine 4 % topical patch 1 patch topical DAILY #30 ea 10/31/24
metoprolol succinate 25 mg tablet,extended release 24 hr 12.5 mg (1/2 x 25 mg) PO HS 30 days #15 tabs 10/31/24
Pending Results: No
== END 2024-10-31 14:10 | disposition home health service (06) | DRG 551 ==
LOC: IVU 16:28
PROVIDERS: Internal Medicine Cardiovascular Disease; Registered Nurse; ADMITTING PHYSICIAN Hospitalist; ATTENDING PHYSICIAN Internal Medicine; EMERGENCY PHYSICIAN Emergency Medicine; OTHER PHYSICIAN Internal Medicine
PROC: 3E0234Z Introduction of Serum, Toxoid and Vaccine into Muscle, Percutaneous Approach (ICD-10-PCS; 2024-10-27)
PROC: 5A2204Z Restoration of Cardiac Rhythm, Single (ICD-10-PCS; 2024-10-30)
DX: S32.010A Wedge compression fracture of first lumbar vertebra, initial encounter for closed fracture (principal); I21.4 Non-ST elevation (NSTEMI) myocardial infarction; I13.0 Hypertensive heart and chronic kidney disease with heart failure and stage 1 through stage 4 chronic kidney disease, or unspecified chronic kidney disease; N17.9 Acute kidney failure, unspecified; I50.32 Chronic diastolic (congestive) heart failure; I48.3 Typical atrial flutter; I42.8 Other cardiomyopathies; J96.10 Chronic respiratory failure, unspecified whether with hypoxia or hypercapnia; I48.0 Paroxysmal atrial fibrillation; N18.32 Chronic kidney disease, stage 3b; Z79.890 Hormone replacement therapy; E78.00 Pure hypercholesterolemia, unspecified; K21.9 Gastro-esophageal reflux disease without esophagitis; Z79.01 Long term (current) use of anticoagulants; W01.0XXA Fall on same level from slipping, tripping and stumbling without subsequent striking against object, initial encounter; D50.0 Iron deficiency anemia secondary to blood loss (chronic); I89.0 Lymphedema, not elsewhere classified; I44.0 Atrioventricular block, first degree; E03.9 Hypothyroidism, unspecified; Z98.41 Cataract extraction status, right eye; Z98.42 Cataract extraction status, left eye; E86.1 Hypovolemia; R09.02 Hypoxemia; N40.0 Benign prostatic hyperplasia without lower urinary tract symptoms; E87.5 Hyperkalemia; I44.7 Left bundle-branch block, unspecified; R29.6 Repeated falls; R73.03 Prediabetes; S40.811A Abrasion of right upper arm, initial encounter; S40.812A Abrasion of left upper arm, initial encounter; Z66 Do not resuscitate; Z79.899 Other long term (current) drug therapy; Z99.81 Dependence on supplemental oxygen
CPT/HCPCS: 70450; 71046; 72100; 73523; 76700; 80048; 80053; 80061; 81003; 81015; 83735; 83880; 84443; 84484; 85025; 85027; 90715; 92960; 93005; 97116; 97163; 97167; 97530; 97535; 99285

== ENCOUNTER → 2024-11-13 10:12 | Outpatient (REF) | payer MEDICARE, SELFPAY ==
[2024-11-13 13:37] LABS: ALT (SGPT) 19 U/L (0-50); AST (SGOT) 35 U/L (17-59); Albumin 3.2 g/dl (3.5-5.0); Alkaline Phosphatase 312 U/L (38-126); Blood Urea Nitrogen 35 mg/dl (9-20); Calcium 8.6 mg/dl (8.4-10.2); Carbon Dioxide 23 mmol/L (22-30); Chloride 107 mmol/L (98-107); Glucose 83 mg/dl (70-99); Potassium 4.2 mmol/L (3.5-5.1); Sodium 137 mmol/L (135-145); Total Protein 7.2 g/dl (6.3-8.2); eGFR 54.85
== END ==
LOC: HWLAB 10:12
PROVIDERS: ATTENDING PHYSICIAN Nurse Practitioner Family
DX: R17 Unspecified jaundice (principal)
CPT/HCPCS: 36415; 80053; 82248; 83880

== ENCOUNTER 2024-11-26 12:55 | Outpatient (RCR) | payer MEDICARE, SELFPAY | END 2024-11-26 23:59 | disposition home or self-care (01) | LOC: RPT 12:55 | PROVIDERS: ATTENDING PHYSICIAN Internal Medicine | DX: I89.0 Lymphedema, not elsewhere classified (principal); Z73.6 Limitation of activities due to disability; R26.2 Difficulty in walking, not elsewhere classified; R26.89 Other abnormalities of gait and mobility | CPT/HCPCS: 97140; 97163; 97530 ==

== ENCOUNTER 2024-12-24 13:54 | Outpatient (RCR) | payer MEDICARE, SELFPAY | END 2024-12-24 23:59 | disposition home or self-care (01) | LOC: RPT 13:54 | PROVIDERS: ATTENDING PHYSICIAN Internal Medicine | DX: I89.0 Lymphedema, not elsewhere classified (principal); Z73.6 Limitation of activities due to disability; R26.2 Difficulty in walking, not elsewhere classified; R26.89 Other abnormalities of gait and mobility | CPT/HCPCS: 97140; 97530 ==